=== PATIENT | male | born 1940 | race Caucasian/White ===

== ENCOUNTER 2017-11-04 13:54 | Inpatient (IN) | payer SELFPAY ==
--- NOTE | 2017-11-04 14:53 | EDPHY ---
H & P Stated Complaint: TESTICULAR PAIN AND SWELLING X 2 WEEKS - Personal History Current Tetanus Diphtheria and Acellular Pertussis (TDAP): Unsure - Medical/Surgical History Other PMH: SELF CATH - Social History Smoking Status: Never smoked Time Seen by Provider: 11/04/17 14:18 HPI/ROS: CHIEF COMPLAINT: Left testicle swelling x2 weeks HISTORY OF PRESENT ILLNESS: 77-year-old male complaining of atraumatic left testicular swelling for the past 2-3 weeks with associated pain, subjective fever at home No change in urinary habits. No dysuria no urethral discharge. Bowel movements normal. No perineal/saddle pain. No straddle injury or trauma to the genitalia. No coagulopathic disorder. No abdominal pain. Bowel movements normal. No nausea or vomiting. No history of diabetes or immunocompromise/suppressed condition. No malaise Last oral intake was 2 days ago PRIMARY CARE PROVIDER: No primary care provider. REVIEW OF SYSTEMS: A ten point review of systems was performed and is negative with the exception of the items mentioned in the HPI PAST MEDICAL & SURGICAL HISTORY: No history of diabetes, no history of immunocompromised/suppressed condition. Tetanus is out-of-date. SOCIAL HISTORY: Nonsmoker. PHYSICAL EXAM (Prior to examination, patient consented to physical exam, hands were washed and my usual and customary physical exam procedures followed) 1) GENERAL: Well-developed, well-nourished, alert and oriented. Appears nontoxic. Answering questions appropriately. 2) HEAD: Normocephalic, atraumatic 3) HEENT: Pupils equal, round, reactive to light bilaterally. Sclera anicteric. 4) NECK: Full range of motion, no meningeal signs. 5) LUNGS: Clear auscultation bilaterally, no wheezes, no rhonchi, no retractions. 6) HEART: Regular rate and rhythm, no murmur, no heave, no gallop. 7) ABDOMEN: No guarding, no rebound, no focal tenderness, negative McBurney's, negative Cortez's, negative Rovsing's, negative peritoneal sign, 8) MUSCULOSKELETAL: Moving all extremities, no focal areas of tenderness, no obvious trauma. No peripheral edema or discoloration. 9) BACK: No CVA tenderness, no midline vertebral tenderness, no fluctuance, no step-off, no obvious trauma, no visual or palpable abnormality. 10) SKIN: No rash, no petechiae. 11) : Patient's left hemiscrotum is beefy red, indurated, tender. No eschar. No crepitus. There is a large asymmetrical mass in left hemiscrotum. There is no fetid odor or drainage. The perineum is nontender. Left inguinal tenderness, adenopathy noted. No overlying skin changes to the inguinal region. DIFFERENTIAL DIAGNOSIS: In no particular order including but not limited to Delfin's gangrene, scrotal cellulitis, abscess, hernia, testicular torsion, hydrocele, varicocele (Lucita John) Constitutional: Initial Vital Signs Temperature (C) 36.5 C 11/04/17 13:58 Heart Rate 99 11/04/17 13:58 Respiratory Rate 16 11/04/17 13:58 Blood Pressure 110/72 11/04/17 13:58 O2 Sat (%) 95 11/04/17 13:58 O2 Delivery Mode Room Air Allergies/Adverse Reactions: No Known Allergies Allergy (Unverified 11/04/17 13:58) Home Medications: Medication Instructions Recorded No Medications [No Known] 11/04/12 Medical Decision Making - Diagnostics Imaging Results: Imaging Impressions Testicular Ultrasound 11/04/17 14:19 Impression: 1. Left epididymo-orchitis. 2. Large complex left hydrocele, with solid and cystic components. Does the patient have a history of an underlying coagulopathy? Findings were discussed with Tucker John PA-C at 15:37, on 11/04/2017. Abdomen CT 11/04/17 15:33 Impression: 1. Inflammatory changes of the left scrotum and inguinal canal, extending along the course of the gonadal vein. Underlying infectious process is possible. No evidence of subcutaneous air. 2. Large enhancing left hydrocele which may be superinfected. Small right hydrocele. 3. Retroperitoneal adenopathy, likely reactive. 4. Marked prostatomegaly with chronic outlet obstruction of the bladder and mild left pelviectasis. Images reviewed myself (Lucita John) ED Course/Re-evaluation: 3:30 p.m. I did examine this patient independently. His exam is consistent with a car serrated inguinal hernia. It is moderately tender. No crepitus or the eschar. We have paged surgery. (Orlando Pandey) 2:30 p.m.: Care of patient under supervision of secondary Supervising physician Dr Pandey with whom I discussed case, and who also evaluated the patient. Will update tetanus, obtain laboratory studies, ultrasound, CT 3:37 p.m.: Patient also seen examined by Dr. Pandey. Awaiting CT imaging results. Will initiate intra-abdominal dual antibiotic therapy with ceftriaxone and Flagyl for suspected incarcerated hernia. 4:[address]m. Re-evaluation. CT imaging studies showing no hernia. Positive for inflammatory changes to the left scrotum and inguinal canal extending along the gonadal vein and prostatomegaly with possible hydrocele superinfection. Skin changes overlying the left hemiscrotum concerning for possible early cellulitis.. Doubt Delfin's gangrene at this time. Patient remains in quite a bit of discomfort. Will plan on admission to hospitalist with Urology consultation. 4:29 p.m.: Consultation with Dr. Jone Hector urology who will consult. 4:49 p.m.: Consultation with Dr. Rach Avery who will admit for hospitalist (Lucita John) - Data Points Laboratory Results: Laboratory Results 11/04/17 15:02 11/04/17 15:02 11/04/17 11/04/17 11/04/17 15:35 15:02 15:02 WBC RBC Hgb Hct MCV MCH MCHC RDW Plt Count MPV Neut % (Auto) Lymph % (Auto) [place] % (Auto) Eos % (Auto) Baso % (Auto) Nucleat RBC Rel Count Absolute Neuts (auto) Absolute Lymphs (auto) Absolute Monos (auto) Absolute Eos (auto) Absolute Basos (auto) Absolute Nucleated RBC Immature Gran % Seg Neutrophils % Band Neutrophils % Lymphocytes % Monocytes % Eosinophils % Basophils % Metamyelocytes % Myelocytes % Promyelocytes % Blast Cells % Immature Gran # Absolute Seg Neuts Absolute Band Neuts Absolute Lymphocytes Absolute Monocytes Absolute Eosinophils Absolute Basophils Absolute Metamyelocyte Absolute Myelocytes Absolute Promyelocytes Absolute Plasma Cells Nucleated RBCs Absolute Blast Cells Plasma Cells % Platelet Estimate Elliptocytes PT 15.8 SEC H SEC (12.0-15.0) INR 1.24 H (0.83-1.16) APTT 31.5 SEC SEC (23.0-38.0) VBG Lactic Acid 1.2 mmol/L mmol/L (0.7-2.1) Sodium 132 mEq/L L mEq/L (135-145) Potassium 4.3 mEq/L mEq/L (3.3-5.0) Chloride 98 mEq/L mEq/L (97-110) Carbon Dioxide 27 mEq/l mEq/l (22-31) Anion Gap 7 mEq/L L mEq/L (8-16) BUN 16 mg/dL mg/dL (7-23) Creatinine 0.8 mg/dL mg/dL (0.7-1.3) Estimated GFR > 60 Glucose 101 mg/dL H mg/dL (70-100) Calcium 9.1 mg/dL mg/dL (8.5-10.4) Total Bilirubin 1.3 mg/dL mg/dL (0.1-1.4) Conjugated Bilirubin 0.5 mg/dL mg/dL (0.0-0.5) Unconjugated Bilirubin 0.8 mg/dL mg/dL (0.0-1.1) AST 34 IU/L IU/L (17-59) ALT 19 IU/L L IU/L (21-72) Alkaline Phosphatase 68 IU/L IU/L (38-126) Total Protein 7.3 g/dL g/dL (6.3-8.2) Albumin 3.4 g/dL L g/dL (3.5-5.0) Urine Color Urine Appearance Urine pH Ur Specific [place] Urine Protein Urine Ketones Urine Blood Urine Nitrate Urine Bilirubin Urine Urobilinogen Ur Leukocyte Esterase Urine RBC Urine WBC Ur Epithelial Cells Urine Bacteria Urine Mucus Urine Glucose 11/04/17 11/04/17 15:02 14:41 WBC 21.21 10^3/uL H 10^3/uL (3.80-9.50) RBC 4.48 10^6/uL 10^6/uL (4.40-6.38) Hgb 13.6 g/dL L g/dL (13.7-17.5) Hct 39.5 % L % (40.0-51.0) MCV 88.2 fL fL (81.5-99.8) MCH 30.4 pg pg (27.9-34.1) MCHC 34.4 g/dL g/dL (32.4-36.7) RDW 13.5 % % (11.5-15.2) Plt Count TNP MPV TNP Neut % (Auto) Not Reported Lymph % (Auto) Not Reported [place] % (Auto) Not Reported Eos % (Auto) Not Reported Baso % (Auto) Not Reported Nucleat RBC Rel Count Not Reported Absolute Neuts (auto) Not Reported Absolute Lymphs (auto) Not Reported Absolute Monos (auto) Not Reported Absolute Eos (auto) Not Reported Absolute Basos (auto) Not Reported Absolute Nucleated RBC Not Reported Immature Gran % Not Reported Seg Neutrophils % 94.0 % % Band Neutrophils % 0 % % Lymphocytes % 2.0 % % Monocytes % 4.0 % % Eosinophils % 0 % % Basophils % 0 % % Metamyelocytes % 0 % % Myelocytes % 0 % % Promyelocytes % 0 % % Blast Cells % 0 % % Immature Gran # Not Reported Absolute Seg Neuts 19.94 10^/uL H 10^/uL (1.70-6.50) Absolute Band Neuts 0.00 10^3/uL 10^3/uL (0.00-0.70) Absolute Lymphocytes 0.42 10^3/uL L 10^3/uL (1.00-3.00) Absolute Monocytes 0.85 10^3/uL H 10^3/uL (0.30-0.80) Absolute Eosinophils 0.00 10^3/uL L 10^3/uL (0.03-0.40) Absolute Basophils 0.00 10^3/uL L 10^3/uL (0.02-0.10) Absolute Metamyelocyte 0.00 10^3/mL 10^3/mL (0.00-0.00) Absolute Myelocytes 0.00 10^3/mL 10^3/mL (0.00-0.00) Absolute Promyelocytes 0.00 10^3/uL 10^3/uL (0.00-0.00) Absolute Plasma Cells 0.00 10^3/uL 10^3/uL (0.00-0.00) Nucleated RBCs 0 /100 WBC /100 WBC (0-0) Absolute Blast Cells 0.00 10^3/uL 10^3/uL (0.00-0.00) Plasma Cells % 0 % % Platelet Estimate TNP Elliptocytes 1+ H PT INR APTT VBG Lactic Acid Sodium Potassium Chloride Carbon Dioxide Anion Gap BUN Creatinine Estimated GFR Glucose Calcium Total Bilirubin Conjugated Bilirubin Unconjugated Bilirubin AST ALT Alkaline Phosphatase Total Protein Albumin Urine Color RK Urine Appearance MODERATELY TURBID Urine pH 5.0 (5.0-7.5) Ur Specific [place] 1.024 (1.002-1.030) Urine Protein 2+ H (NEGATIVE) Urine Ketones 2+ H (NEGATIVE) Urine Blood 2+ H (NEGATIVE) Urine Nitrate POSITIVE H (NEGATIVE) Urine Bilirubin NEGATIVE (NEGATIVE) Urine Urobilinogen 4.0 EU H EU (0.2-1.0) Ur Leukocyte Esterase 3+ H (NEGATIVE) Urine RBC 25-50 /hpf H /hpf (0-3) Urine WBC 50-182 /hpf H /hpf (0-3) Ur Epithelial Cells TRACE /lpf /lpf (NONE-1+) Urine Bacteria 4+ /hpf H /hpf (NONE SEEN) Urine Mucus 4+ /lpf H /lpf (NONE-1+) Urine Glucose NEGATIVE (NEGATIVE) Medications Given: Discontinued Medications Diphtheria/Tetanus/Acell Pertussis (Boostrix) 0.5 ml IM .ONCE ONE Stop: 11/04/17 15:22 Last Admin: 11/04/17 16:04 Dose: 0.5 ml Ceftriaxone Sodium/Dextrose (Rocephin 1 Gm (Premix)) 50 mls @ 100 mls/hr IV EDNOW ONE PRN Reason: Protocol Stop: 11/04/17 16:16 Last Admin: 11/04/17 16:03 Dose: 50 mls Metronidazole/Sodium Chloride (Flagyl 500 Mg (Premix)) 100 mls @ 100 mls/hr IV EDNOW ONE PRN Reason: Protocol Stop: 11/04/17 16:46 Last Admin: 11/04/17 16:04 Dose: 100 mls Departure - Departure Disposition: [facility] Acute Clinical Impression: Hydrocele in adult Elevated white blood cell count Qualifiers: Leukocytosis type: unspecified Qualified Code(s): D72.829 - Elevated white blood cell count, unspecified Condition: Fair
[2017-11-04] MEDS ORDERED: TDAP ADULT 0.5 ML INJ (BOOSTRIX) IM ONE (15:21)
[2017-11-04] MEDS ORDERED: IOPAMIDOL (ISOVUE-300) 100 ML BTL ONE (15:36)
[2017-11-04 16:05] LABS: INR 1.24 (0.83-1.16); PROTIME(PATIENT) 15.8 SEC (12.0-15.0)
[2017-11-04] MEDS ORDERED: ONDANSETRON 4 MG/2 ML VIAL IVP PRN (16:50)
[2017-11-04] MEDS ORDERED: ACETAMINOPHEN 325 MG TAB PO PRN (16:50)
[2017-11-04] MEDS ORDERED: ONDANSETRON DISINTEGRATING 4 MG TAB PO PRN (16:50)
[2017-11-04] MEDS ORDERED: NS 1,000 ML IV SCH (18:00)
--- NOTE | 2017-11-04 19:04 | GHP ---
[f rep st] HISTORY AND PHYSICAL DATE OF ADMISSION: 11/04/2017 CHIEF COMPLAINT: Scrotal swelling, pain. HISTORY OF PRESENT ILLNESS: 77 y/o male presenting with left testicular swelling for the past 2 weeks. He has had minimal pain, but some sweating. Denies overt fevers, nausea, vomiting, or diarrhea. He says he has an enlarged prostate, so has been self-cathing, but has been cleaning his catheters in the [place]. Denies any pus or drainage from the scrotum or his penis. REVIEW OF SYSTEMS: I completed a 10-point review of systems, negative except as in HPI. PAST MEDICAL HISTORY: Denies. PAST SURGICAL HISTORY: Appendectomy. SOCIAL HISTORY: Lives with a friend. No illicits. Occasional beer. MEDICATIONS: None. ALLERGIES: None. PHYSICAL EXAMINATION: VITAL SIGNS: Temperature 36.3, blood pressure 106/73, heart rate in the 70s, respirations 16, 96% on room air. GENERAL: Disheveled, but no acute distress. HEENT: PERRLA. Moist mucous membranes. CV: Regular rate and rhythm. LUNGS: Clear. ABDOMEN: Soft, nontender, nondistended. Positive bowel sounds. : The left scrotum is enlarged, indurated, firm, and red. There is no eschar or gangrene. Mild erythema and induration extends up the left groin. No drainage. He has left inguinal adenopathy. NEURO: 2 through 12 intact. PSYCH: Alert and oriented x3. LABORATORY DATA: WBC 21, hemoglobin 13, hematocrit 39, platelets 435. Lactate is 1.2. INR is 1.2. Sodium 132, potassium 4.3, chloride 98, carbon dioxide 27 , BUN 16, creatinine 0.8, glucose 101, calcium 9.1. Total bilirubin 1.3, AST 34 , ALT 19, albumin 3.4. Total protein 7.3. WBC 50 to 182, +3 leuks, positive nitrate. IMAGING: Testicular ultrasound: Left epididymo-orchitis. Large complex left hydrocele with solid and cystic components. Abdominal CT: Inflammatory changes of the left scrotum and inguinal canal extending along the course of the gonadal vein. No subcutaneous air. Large enhancing left hydrocele, which may be superinfected. Small right hydrocele. Retroperitoneal adenopathy. Marked prostatomegaly with chronic outlet obstruction. ASSESSMENT AND PLAN: 1. Orchitis/epididymitis: elevated white count, erythema of scrotum. No evidence of Delfin's. He is afebrile. He was evaluated by Dr. Hector in ER. Does not recommend any intervention at this time. Treat broadly with IV ceftriaxone and Flagyl. Blood/ urine cultures are pending. He had a tetanus shot in the ER. Urinalysis is grossly positive. Normal lactate. 2. Leukocytosis: Again from scrotal infection/urinary tract infection: Continue broad antibiotics. Cultures are pending. 3. Hypovolemic hyponatremia: Gently hydrate. 4. Diet: Regular. 5. Deep venous thrombosis prophylaxis: Sequential compression devices. 6. Patient warrants inpatient admission given acute infection requiring IV antibiotics and fluids. /[id number]/MODL MTDD
--- NOTE | 2017-11-04 21:04 | GCON ---
[f rep st] CONSULTATION DATE OF CONSULTATION: 11/04/2017 REFERRING PHYSICIAN: DULCE Juarez REASON FOR CONSULTATION: Left scrotal erythema and hydrocele and epididymitis. HISTORY OF PRESENT ILLNESS: The patient is a 77-year-old gentleman who for approximately the last 2 to 3 weeks has noticed increased tenderness and swelling of the left hemiscrotum. He has been having subjective fevers. Patient has a history of urinary retention, managed with intermittent catheteriz ation since 2012. He had had no recent troubles but has been cleaning catheters in the [place] . He has had no urethral discharge. His entire left side is tender. PAST MEDICAL HISTORY: Positive for urinary retention. PAST SURGICAL HISTORY: None. MEDICATIONS: Patient is on no regular medicines. SOCIAL HISTORY: He is a never smoker. REVIEW OF SYSTEMS: Negative except as above. EXAM: GENERAL: Patient is in no acute distress. GENITOURINARY: He has a normal phallus. Testes a re descended. There is induration of the left hemiscrotum. No crepitance is noted. Perineum and in guinal area are not erythematous or tender. Right hemiscrotum is normal. White count is elevated at 21,000. Ultrasound and CT scan confirmed a scrotal thickening, induration of the left epididymis, and a heterogeneous fluid collection around the left testis. Patient has si gnificantly enlarged prostate as well. There is no adenopathy. IMPRESSION: Left epididymitis with reactive hydrocele and reactive scrotal erythema. PLAN: The options are to perform exploration, drainage, probable orchiectomy versus IV antibiotics t o try to resolve the acute inflammation. Patient is not toxic at this time and has received Rocephin and Flagyl. I will re-evaluate and make further decisions on treatment. /[id number]/MODL
[2017-11-04] MEDS: metroNIDAZOLE 500 MG TAB PO SCH (21:32)
[2017-11-05] MEDS ORDERED: NS 500 ML IV ONE (04:46)
[2017-11-05] MEDS: NS 1,000 ML IV SCH ×2 (04:58→10:08)
[2017-11-05] MEDS: metroNIDAZOLE 500 MG TAB PO SCH ×3 (05:02→21:44)
--- NOTE | 2017-11-05 08:31 | SOAPPROG ---
SOAP Progress Note Assessment/Plan: Assessment: Left epididymitis with reactive hydrocele Minimal change overnight, but no progression Plan: 11/05/17 08:28 Pt will get additional antibiotics today; I suspect that he will need operative drainage/packing. Will tentatively plan for Tuesday unless condition changes today. Subjective: Pt is having no pain; he is self-cathing without problems. Objective: Vital Signs Temp Pulse Resp BP Pulse Ox 37.1 C 111 H 20 116/66 93 11/05/17 07:21 11/05/17 07:21 11/05/17 07:21 11/05/17 07:21 11/05/17 07:21 Laboratory Results 11/05/17 04:36 11/04/17 11/05/17 11/06/17 05:59 05:59 05:59 Intake Total 350 1151 Balance 350 1151 PT 15.8 SEC (12.0-15.0) H 11/04/17 15:02 INR 1.24 (0.83-1.16) H 11/04/17 15:02 Physical Exam - Physical Exam Male Genitalia: other (No significant change in scrotal enduration; no crepitation, or extrascrotal cellulitis. ) ICD10 Worksheet Patient Problems: Problems Problem Status Onset Elevated white blood cell count Acute Hydrocele in adult Acute
--- NOTE | 2017-11-05 08:34 | HOSPPROG ---
Hospitalist Progress Note Assessment/Plan: Mr Parker is a 77 y/o male who presented to the ER with left testicular swelling for the past 2 days. He cleaned his catheters in [place] (of note the [place] is not homeless, [place] a friend in [place] Today is my first encounter with the patient, chart reviewed. *Scrotal infection, Left epididymitis -Ceftriaxone and Flagyl -appreciate Dr Hector's involvement -to go to OR on Tuesday for I & D and packing *leukocytosis -due to the above *mild hyponatremia *DVT prophylaxis: early ambulation *Plan: OR tomorrow, NPO after midnight. Subjective: Damian isn't having significant pain in the left scrotum area. Objective: Vital Signs Temp Pulse Resp BP Pulse Ox 37.1 C 111 H 20 116/66 93 11/05/17 07:21 11/05/17 07:21 11/05/17 07:21 11/05/17 07:21 11/05/17 07:21 Laboratory Results 11/05/17 04:36 11/04/17 11/05/17 11/06/17 05:59 05:59 05:59 Intake Total 350 1151 Balance 350 1151 PT 15.8 SEC (12.0-15.0) H 11/04/17 15:02 INR 1.24 (0.83-1.16) H 11/04/17 15:02 - Physical Exam Constitutional: appears nourished, not in pain, unkempt Eyes: PERRL Ears, Nose, Mouth, Throat: hearing normal Cardiovascular: regular rate and rhythym Respiratory: no respiratory distress Gastrointestinal: normoactive bowel sounds Genitourinary: no bladder fullness, other (left testicle warm, firm, and very enlarged. No draingage, no eschar. Erythema extends to the left groin area.) Skin: warm Musculoskeletal: full muscle strength Neurologic: AAOx3 Psychiatric: interacting appropriately ICD10 Worksheet Patient Problems: Problems Problem Status Onset Elevated white blood cell count Acute Hydrocele in adult Acute
--- NOTE | 2017-11-05 10:12 | PDMN ---
Medical Necessity Medical necessity: MCG: MGUD Urologic Disease. 77 y/o Pt w/ testicular swelling , elevated WBC 21.21, dx w/ acute infection - epididymitis w/ reactive hydrocele. Urology consult - pending drainage and packing procedure w/ possible orchiectomy 11/06/17. Required antifungal, IV antibiotics and IV fluids. Hypotension requiring IV fluid bolus. Anemia and hyponatremia present. + UTI. Blood and urine cultures pending. Anticipate >2MN for ongoing monitoring and treatment w/ IV antibx and fluids, pending surgical intervention.
--- NOTE | 2017-11-05 10:40 | ASMTCMCOM ---
CM Note CM Note Notes: Patient admitted for scrotal swelling/pain. He is being treated with IV abx and will go to the OR tomorrow 11/06 for drainage/packing. Patient lives remotely in the [facility] but is staying with a good friend in [place]. He's eccentric but not homeless. He will need to be screened by [employer] for Medicaid on Tuesday. Case Management will follow for discharge planning. Date Signed: 11/05/2017 10:39 AM Electronically Signed By:Valarie Saucedo RN
[2017-11-05] MEDS ORDERED: NS 1,000 ML IV SCH (23:00)
[2017-11-06 04:48] LABS: PLATELET COUNT 378 10^3/uL (150-400)
[2017-11-06] MEDS: metroNIDAZOLE 500 MG TAB PO SCH ×3 (05:38→21:36)
[2017-11-06] MEDS ORDERED: LR 1,000 ML IV ONE (07:50)
--- NOTE | 2017-11-06 07:58 | PDANEPAE ---
ANE History of Present Illness scrotal abscess ANE Past Medical History - Cardiovascular History Hx Hypertension: No Hx Arrhythmias: No Hx Chest Pain: No Hx Coronary Artery / Peripheral Vascular Disease: No Hx CHF / Valvular Disease: No Hx Palpitations: No - Pulmonary History Hx COPD: No Hx Asthma/Reactive Airway Disease: No Hx Recent Upper Respiratory Infection: No Hx Oxygen in Use at Home: No Hx Sleep Apnea: No Sleep Apnea Screening Result - Last Documented: Negative - Endocrine History Hx Diabetes: No - Chronic Pain History Chronic Pain: No ANE Review of Systems Review of systems is: negative Review of Systems: - Exercise capacity Exercise capacity: >=4 METS ANE Patient History - Allergies Allergies/Adverse Reactions: No Known Allergies Allergy (Unverified 11/04/17 13:58) - Home Medications Home medications: home medication list seen and reviewed Home Medications: NK [No Known Home Meds] 11/04/17 [Last Taken Unknown] - NPO status NPO Since - Liquids (Date): 11/06/17 NPO Since - Liquids (Time): 00:05 NPO Since - Solids (Date): 11/05/17 NPO Since - Solids (Time): 16:00 - Anes Hx Anes Hx: no prior problems - Smoking Hx Smoking Status: Never smoked ANE Labs/Vital Signs - Labs Result Diagrams: 11/06/17 04:33 11/06/17 04:33 - Vital Signs Blood Pressure: 114/79 Heart Rate: 109 Respiratory Rate: 16 O2 Sat (%): 90 Height: 177.8 cm Weight: 79.379 kg ANE Physical Exam - Airway Neck exam: FROM Mallampati Score: Class 2 Mouth exam: chaudhry - Pulmonary Pulmonary: no respiratory distress - Cardiovascular Cardiovascular: regular rate and rhythym - ASA Status ASA Status: II, E ANE Anesthesia Plan Anesthesia Plan: general endotracheal anesthesia
[2017-11-06] MEDS ORDERED: fentaNYL 100 MCG/2 ML INJ ONE ×2 (08:05)
[2017-11-06] MEDS ORDERED: PROPOFOL 200 MG/20 ML VIAL ONE (08:05)
[2017-11-06] MEDS ORDERED: ONDANSETRON 4 MG/2 ML VIAL ONE (08:06)
[2017-11-06] MEDS ORDERED: KETOROLAC 30 MG/1 ML SDV ONE (08:06)
[2017-11-06] MEDS ORDERED: DEXAMETHASONE 4 MG/ML VIAL ONE (08:06)
[2017-11-06] MEDS ORDERED: LIDOCAINE 2% 5 ML SDV ONE (08:06)
[2017-11-06] MEDS ORDERED: PHENYLEPHRINE HCL 100 MCG/ML SYR ONE (08:18)
[2017-11-06] MEDS ORDERED: HYDROmorphONE/DILAUDID 1 MG/ML INJ IVP PRN (08:28)
[2017-11-06] MEDS ORDERED: METOCLOPRAMIDE 10 MG/2 ML VIAL IVP PRN (08:28)
[2017-11-06] MEDS ORDERED: LR 500 ML IV PRN (08:28)
[2017-11-06] MEDS ORDERED: ONDANSETRON 4 MG/2 ML VIAL IVP PRN (08:28)
[2017-11-06] MEDS ORDERED: LABETALOL HCL 5 MG/ML 20 ML MDV IVP PRN (08:28)
[2017-11-06] MEDS ORDERED: HYDROCODONE/APAP 5/325 TAB PO PRN (08:28)
[2017-11-06] MEDS ORDERED: ACETAMINOPHEN 500 MG TAB PO PRN (08:28)
[2017-11-06] MEDS ORDERED: NALOXONE HCL 0.4 MG/ML INJ IVP PRN (08:28)
[2017-11-06] MEDS ORDERED: oxyCODONE IR 5 MG TAB PO PRN (08:28)
[2017-11-06] MEDS ORDERED: fentaNYL 100 MCG/2 ML INJ IVP PRN (08:28)
[2017-11-06] MEDS ORDERED: ALBUTEROL 3 ML DEYVIAL IH PRN (08:28)
[2017-11-06] MEDS ORDERED: PROMETHAZINE HCL 25 MG/ML INJ IVP PRN (08:28)
--- NOTE | 2017-11-06 08:28 | POSTANESTH ---
Post Anesthetic Evaluation Cardiovascular Status: Normal, Stable Respiratory Status: Normal, Stable Level of Consciousness/Mental Status: Can Participate in Eval, Alert and Oriented Pain Control: Adequate, Prn Tx Ordered Nausea/Vomiting Control: Adequate, Prn Tx Ordered Complications Possibly Related to Anesthesia: None Noted
[2017-11-06] MEDS ORDERED: BUPIVACAINE 0.25% 30 ML SDV ONE (08:31)
--- NOTE | 2017-11-06 08:46 | POSTOPPROG ---
Post Op Note Date of Operation: 11/06/17 Surgeon: Jone Hector Loading Unit Operator Seating: none Anesthesia: GET(General Endotracheal) Pre-op Diagnosis: infected left hydrocele Post-op Diagnosis: same Procedure: Incision and drainage of left hemiscrotum Inf/Abcess present in the surg proc area at time of surgery?: Yes Depth: Superfical (Skin SQ) EBL: 50-100
--- NOTE | 2017-11-06 10:09 | GOP ---
[f rep st] OPERATIVE REPORT DATE OF OPERATION: 11/06/2017 SURGEON: Jone Hector MD PREOPERATIVE DIAGNOSIS: Infected left hydrocele. POSTOPERATIVE DIAGNOSIS: Infected left hydrocele. PROCEDURE PERFORMED: Incision and drainage of left hemiscrotum. FINDINGS: SPECIMENS: Left infected hydrocele for culture. ESTIMATED BLOOD LOSS: Minimal. INDICATIONS: Patient is a 77-year-old male who was admitted with acute scrotal hyperemia and fullnes s. CT scan was consistent with left epididymal orchitis; a mixed density fluid collection was around the testis. Urine culture grew Citrobacter. Patient was given 2 days of antibiotics, but showed mi nimal improvement. Options were discussed. He elected to come in for incision and drainage of presu med left infected hydrocele. DESCRIPTION OF PROCEDURE: After informed consent and under general endotracheal anesthesia, the mary ann ent was placed in the lithotomy position with his genitalia sterilely prepped and draped. A total of 20 cc of 0.25% Marcaine were injected at the scrotal skin and as a cord block. A transverse incision was made and carried into the scrotal sac. A moderate amount of purulent mater ial was drained. Cultures were obtained. The solid debris was also bluntly removed. The testis carlos eared viable. The wound was irrigated copiously with saline. Saline soaked Kerlix was used to pack the wound and an ABD pad and mesh panties were used as a dressing. A Woo catheter was placed at th e end of the procedure. The patient was awakened, transferred to the recovery room in stable condition. COMPLICATIONS: There were no intraoperative complications. /[id number]/MODL
--- NOTE | 2017-11-06 12:03 | HOSPPROG ---
Hospitalist Progress Note Assessment/Plan: Assessment: 77-year-old male presenting with epididymitis, infected hydrocele secondary to chronic straight catheterization for suspected BPH, with poor sanitation Plan: 1. Epididymitis, infected hydrocele. Acute, Citrobacter growing in urine culture, moderate amount of pustular material excised on incision and drainage by Dr. Jone Hector, 11/06/2017, sent for culture -continue monitor white blood cell count, currently downtrending -secondary to trauma after patient utilizing [place] water to clean his straight catheter, and then inserting -discussed with Dr. Ainsley Souza, appreciate consultation to help guide duration and choice of antibiotic therapy -continue on IV ceftriaxone and Flagyl -pain management currently adequate -Dr. Hector will reassess wound area tomorrow and guide treatment moving forward -appreciate wound care consultation and guidance regarding keeping the area clean, receiving wound care as an outpatient -counseled the patient and his friend and extensively regarding the plan above 2. Suspected BPH. Likely cause of the patient's straight catheterizations which she has been performing for years -patient believes that he can control his BPH with intermittent fasting and other dietary choices -encourage the patient to consider utilizing adjuvant Flomax or finasteride -continue to keep indwelling Woo catheter 3. Acute hyponatremia. Secondary to hypoperfusion in setting of infection, received IV normal saline, hold further IV fluids Diet. Regular Prophylaxis. Moderate risk, SCDs, initiate pharmacologic when deemed safe by Urology Code. Full Disposition. Anticipated discharge uncertain, pending surgical wound management as above, discussed with case management, will investigate patient's nursing and therapy needs to be on this episode of care. Subjective: Pain very minimal, scrotal area is damp Objective: Vital Signs Temp Pulse Resp BP Pulse Ox 36.5 C 74 14 114/79 90 L 11/06/17 11:31 11/06/17 11:31 11/06/17 11:31 11/06/17 11:31 11/06/17 11:31 Laboratory Results 11/06/17 04:33 11/06/17 04:33 11/05/17 11/06/17 11/07/17 05:59 05:59 05:59 Intake Total 350 5619 350 Output Total 800 10 Balance 350 4819 340 PT 15.8 SEC (12.0-15.0) H 11/04/17 15:02 INR 1.24 (0.83-1.16) H 11/04/17 15:02 - Time Spent With Patient Time Spent with Patient: greater than 35 minutes Time Spent with Patient: Greater than 35 minutes spent on this patients care, greater than 50% of time spent counseling, educating, and coordinating care regarding the above mentioned plan. - Physical Exam Constitutional: no apparent distress, not in pain, unkempt, No uncomfortable Cardiovascular: regular rate and rhythym, no murmur, rub, or gallop, No irregularly irregular, No edema Respiratory: no respiratory distress, no rales or rhonchi, clear to auscultation Gastrointestinal: normoactive bowel sounds, soft, non-tender abdomen, no palpable masses Genitourinary: other (Firm scrotum, minimally tender, not fluctuant but slightly indurated, bandaged in the inferior aspect with mild serosanguineous drainage, penis appears normal with Woo catheter in place) Neurologic: AAOx3 Psychiatric: not anxious, not encephalopathic, other (eccentric, redirectible), No agitated ICD10 Worksheet Patient Problems: Problems Problem Status Onset Hydrocele in adult Acute Elevated white blood cell count Acute
--- NOTE | 2017-11-06 13:05 | GCON ---
[f rep st] CONSULTATION INFECTIOUS DISEASE CONSULTATION DATE OF CONSULTATION: 11/06/2017 REFERRING PHYSICIAN: Lawrence Marte MD REASON FOR CONSULTATION: Scrotal cellulitis and infected hydrocele. HISTORY OF PRESENT ILLNESS: A 77-year-old male with a history of urinary retention, thought secondary to BPH, who was self-catheterizing for the last 5 years, who 3 weeks ago was hiking, washed his self-catheter in stream water, and subsequently a week later developed progressive testicular swelling. The patient eventually presented to care on November 04 through the prompting of his daughter and friend. On admission, the patient was found to have testicular swelling with erythema, left greater than right, a marked leukocytosis of 21,000 , and pyuria, with imaging showing a large hydrocele on the left, 8 x 7 x 5 cm, with associated hyperemia of the testis and epididymal head. In addition, a CT was performed, which confirmed inflammatory changes of the scrotum and inguinal canal with a large enhancing left hydrocele suggestive of superinfection. Also , marked prostatomegaly with chronic outlet obstruction. The patient was admitted to the hospital, and started on IV ceftriaxone and metronidazole. Urology was consulted, and today patient went to the OR for I and D of the left hemiscrotum, which was left open and packed. Cultures were taken and pending. Urine culture demonstrated 100,000 Citrobacter susceptible to ceftriaxone. ID is asked to consult for ongoing antibiotic management. PAST MEDICAL HISTORY: Possible enlarged prostate, self-catheterizing x5 years. PAST SURGICAL HISTORY: He had an appendectomy. SOCIAL HISTORY: He lives with a friend. He immigrated to the [place] from [place] in the 1960s. 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 He has a daughter who is present in the room. No recent travel. MEDICATIONS AT HOME: None. CURRENT MEDICATIONS: Ceftriaxone 1 g IV daily, Flomax 0.5 mg at bedtime, Zofran as needed, Flagyl 500 mg p.o. q.8 h., and Tylenol. ALLERGIES: NKDA. REVIEW OF SYSTEMS: A complete 10-point review of systems was performed and was negative except as mentioned in the HPI. PHYSICAL EXAM: VITAL SIGNS: T-max is 37.9, temperature currently is 36.5, blood pressure 114/76, heart rate 74, respiratory rate 14, and saturation 90% to 93% on room air. GENERAL: This is a tanned male lying in bed with long hair. He is breathing easy. HEENT: He has reactive pupils bilaterally. He is edentulous. He has moist mucous membranes. NECK: Supple. CARDIOVASCULAR: Regular rate. No murmurs. CHEST: Clear to auscultation bilaterally. ABDOMEN: Soft and nontender. : Woo is in place. The patient has scrotal edema that is woody in nature, left side greater than right, with gustavo erythema , and significant drainage coming from the left side, which is packed with gauze from the OR. He has some tenderness to palpation, particularly on the left. No crepitus. NEUROLOGICAL: He has fluent speech. He is alert and oriented x4, moving all 4 extremities equally. SKIN: No rash. LABORATORY: White count today is 13,000 and was 21,000 to begin with, hematocrit 35, platelets 378, and 75% neutrophils. Creatinine is 0.6. AST 34, ALT 19, and albumin 3.4. Blood cultures of November 04, 2017, one of 2 growing gram- positive anabel, ID pending. Cultures from the OR today, 11/06/2017, Gram stain and culture are pending. ASSESSMENT AND PLAN: This is a 77-year-old male with BPH, who has self- catheterized x5 years, who developed a significant complication related to poor technique related to in-and-out catheters, with scrotal cellulitis and a likely infected left hydrocele, status post incision and drainage. Scrotal cellulitis has a propensity to be more polymicrobial in nature as source of bacterial can be related to GI tract, urine culture demonstrates Citrobacter susceptible to ceftriaxone. Whether gram-positive anabel in blood cultures is significant is not clear at this point. The patient has clinically improved. Therefore, I would not adjust antibiotics at this point. 1. Continue ceftriaxone and metronidazole. Reasonable to continue anaerobic coverage until OR cultures more mature. 2. Follow up on identification of gram-positive anabel and blood cultures. 3. Would follow up on cultures from the operating room. 4. Duration of antibiotic therapy: Currently to remain on intravenous antibiotics due to severity of infection, may need up to 2 weeks. We will await additional information for final duration and modality of therapy. Thank you for this consultation. We will continue to see him on a daily basis. Time 80 min >50% time spent with education and counseling regarding diagnosis and planned treatment and expected recovery course.Reviewed course of treatment with the patient, his sister, and friend, and care was coordinated with Dr. Marte. /[id number]/MODL [email or web address]
[2017-11-06] MEDS: TAMSULOSIN HCL 0.4 MG CAP PO SCH (21:37)
[2017-11-07] MEDS: metroNIDAZOLE 500 MG TAB PO SCH ×3 (05:49→21:11)
--- NOTE | 2017-11-07 11:49 | ASMTCMCOM ---
CM Note CM Note Notes: CM spoke to michael Pantoja [employer] regarding d/c POC. Pt does not qualify for Medicaid at this time. Needs are TBD at this time. CM to follow. Plan: TBD Date Signed: 11/07/2017 11:48 AM Electronically Signed By:KEVIN Lee
--- NOTE | 2017-11-07 17:14 | PCMIDPN ---
Assessment/Plan: Assessment: Infected hydrocele left scrotum-possibly inoculated by poor technique from intermittent catheterization. Citrobacter in his urine is covered with ceftriaxone. Metronidazole added for anaerobe coverage given stories of environmental exposure to cistern and stream water for catheterization. Possible oral regimen of Levaquin and Flagyl for discharge once ready. Plan: 1. Continue both ceftriaxone and metronidazole as dosed. 2. Follow surgical evaluation of operative wound. 11/07/17 17:11 Subjective: Patient is resting in his hospital bed. He is very talkative and somewhat tangential with speech. His friend who lives in [place] who he occasionally lives with is in the room as well. He denies any new complaint. Objective: Ceftriaxone # 3 Metronidazole # 3 Vital Signs Temp Pulse Resp BP Pulse Ox 36.5 C 69 16 118/79 93 11/07/17 16:00 11/07/17 16:00 11/07/17 16:00 11/07/17 16:00 11/07/17 16:00 Microbiology 11/06/17 08:23 Gram Stain - Final Groin - Anaerobic Tube/Swab Laboratory Results 11/07/17 04:40 11/06/17 04:33 11/06/17 11/07/17 11/08/17 05:59 05:59 05:59 Intake Total 5619 900 Output Total 800 1110 Balance 4819 -210 - Physical Exam General Appearance: WD/WN, alert, no apparent distress, non-toxic Respiratory: lungs clear, normal breath sounds, No respiratory distress Cardiac/Chest: regular rate, rhythm, No tachycardia Skin: normal color, warm/dry, No rash Neuro/Psych: alert, normal mood/affect, oriented x 3 ICD10 Worksheet Patient Problems: Problems Problem Status Onset Elevated white blood cell count Acute Hydrocele in adult Acute
--- NOTE | 2017-11-07 17:29 | HOSPPROG ---
Hospitalist Progress Note Assessment/Plan: Assessment: 77-year-old male presenting with epididymitis, infected hydrocele secondary to chronic straight catheterization for suspected BPH, with poor sanitation Plan: 1. Epididymitis, infected hydrocele. POA, Citrobacter growing in urine culture and GPR on BCx, moderate amount of pustular material excised on incision and drainage 11/06/2017 -continue monitor white blood cell count, currently downtrending -secondary to trauma after patient utilizing [place] water to clean his straight catheter, and then inserting -per ID, continue on IV ceftriaxone and Flagyl -cont local wound care, keep dry -anticipate 2 weeks IV Abx -case mgmt currently working on Medicaid carlos w/ financial counseling to enable Abx outside of hospital -appreciate ongoing eval by Dr. Hector 2. Suspected BPH. Likely cause of the patient's straight catheterizations which he has been performing for years -patient believes that he can control his BPH with intermittent fasting and other dietary choices -encourage the patient to consider utilizing adjuvant Flomax, started -continue to keep indwelling Blood catheter 3. Acute hyponatremia. Secondary to hypoperfusion in setting of infection, received IV normal saline, hold further IV fluids 4. Eccentricity. Unclear whether patient has a schizotypal personality disorder , very tangential speech, but not overtly encephalopathic -cont to encourage self-care Diet. Regular Prophylaxis. Moderate risk, lovenox 40 Code. Full Disposition. Anticipated discharge uncertain, pending surgical wound management as above, discussed with case management, will investigate patient's nursing and therapy needs. Subjective: patient reports frustration w/ the current value of currency and inflation which he deems to be 2/2 irresponsible printing of paper money; reports pain in scrotum minimal, ongoing drainage Objective: Vital Signs Temp Pulse Resp BP Pulse Ox 36.5 C 69 16 118/79 93 11/07/17 16:00 11/07/17 16:00 11/07/17 16:00 11/07/17 16:00 11/07/17 16:00 Microbiology 11/06/17 08:23 Gram Stain - Final Groin - Anaerobic Tube/Swab Laboratory Results 11/07/17 04:40 11/06/17 04:33 11/06/17 11/07/17 11/08/17 05:59 05:59 05:59 Intake Total 5619 900 Output Total 800 1110 Balance 4819 -210 PT 15.8 SEC (12.0-15.0) H 11/04/17 15:02 INR 1.24 (0.83-1.16) H 11/04/17 15:02 - Physical Exam Constitutional: no apparent distress, not in pain, unkempt, No uncomfortable Cardiovascular: regular rate and rhythym, no murmur, rub, or gallop, No edema Respiratory: no respiratory distress, no rales or rhonchi, clear to auscultation Gastrointestinal: normoactive bowel sounds, soft, non-tender abdomen, no palpable masses, No distension Genitourinary: other (firm scrotum w/o tenderness, packing in place, normal penis w/o lesion, blood in urethra) Skin: other (induration but no erythema anterior scrotum) Neurologic: AAOx3 Psychiatric: not anxious, not encephalopathic, thought process linear, other ( tangential but directible) ICD10 Worksheet Patient Problems: Problems Problem Status Onset Hydrocele in adult Acute Elevated white blood cell count Acute
[2017-11-07] MEDS: TAMSULOSIN HCL 0.4 MG CAP PO SCH (21:11)
[2017-11-08] MEDS: metroNIDAZOLE 500 MG TAB PO SCH (06:08)
--- NOTE | 2017-11-08 07:30 | SOAPPROG ---
SOAP Progress Note Assessment/Plan: Assessment: Left epididymitis with reactive hydrocele Minimal change overnight, but no progression Plan: 11/05/17 08:28 Pt will get additional antibiotics today; I suspect that he will need operative drainage/packing. Will tentatively plan for Tuesday unless condition changes today. 11/08/17 07:28 Pt is progressing; his wound is starting to granulate. Will continue to have dressing changes; pt should be able to continue after discharge. Subjective: Pt wants to take a shower. He has no new complaints. Objective: Vital Signs Temp Pulse Resp BP Pulse Ox 36.6 C 68 16 121/83 H 93 11/07/17 22:28 11/07/17 22:28 11/07/17 22:28 11/07/17 22:28 11/07/17 22:28 Microbiology 11/06/17 08:23 Gram Stain - Final Groin - Anaerobic Tube/Swab Laboratory Results 11/08/17 04:50 11/06/17 04:33 11/07/17 11/08/17 11/09/17 05:59 05:59 05:59 Intake Total 900 1200 Output Total 1110 1400 Balance -210 -200 PT 15.8 SEC (12.0-15.0) H 11/04/17 15:02 INR 1.24 (0.83-1.16) H 11/04/17 15:02 Physical Exam - Physical Exam Male Genitalia: other (Good granulation tissue is forming; size of space is markedly reduced.) ICD10 Worksheet Patient Problems: Problems Problem Status Onset Elevated white blood cell count Acute Hydrocele in adult Acute
--- NOTE | 2017-11-08 09:37 | PCMIDPN ---
Assessment/Plan: # Scrotal cellulitis and infected L hydrocele: still very indurated but improved , still w moderate tenderness, purplish gustavo appearance. Ucx with Citrobacter. No anaerobes isolated from I&D yet. WBC normal for first time today --dc metronidazole, may be causing LOCKETT, no anaerobes isolated --continue ceftriaxone --improved but still needs close monitoring # Positive blood cx 1/2 sets: likely contaminant micro 11/04 blood cx 1/2 Dermobacter hominis 11/04 UCx 100K Citrobacter meds ceftriaxone 1gm IV daily #5 Flagyl Subjective: c/o LOCKETT, feels like it is due to antibiotics Objective: Vital Signs Temp Pulse Resp BP Pulse Ox 36.6 C 69 16 117/84 H 91 L 11/08/17 08:00 11/08/17 08:00 11/08/17 08:00 11/08/17 08:00 11/08/17 08:00 Microbiology 11/06/17 08:23 Gram Stain - Final Groin - Anaerobic Tube/Swab Laboratory Results 11/08/17 04:50 11/06/17 04:33 11/07/17 11/08/17 11/09/17 05:59 05:59 05:59 Intake Total 900 1200 Output Total 1110 1400 Balance -210 -200 - Physical Exam General Appearance: alert, no apparent distress EENT: other (no teeth; MMM) Respiratory: No accessory muscle use Extremities: No pedal edema Male Genitalia: erythema (gustavo diffuse scrotal edema), scrotal edema (woody), other (packing in place L hemiscrotum, dry currently) Skin: pallor, other (tanned), No rash Neuro/Psych: alert, normal mood/affect, oriented x 3, other (very tangential) - Time Spent With Patient Time Spent with Patient: greater than 25 minutes Time Spent with Patient: Greater than 25 minutes spent on this patients care, greater than 50% of time spent counseling, educating, and coordinating care regarding the above mentioned plan. ICD10 Worksheet Patient Problems: Problems Problem Status Onset Elevated white blood cell count Acute Hydrocele in adult Acute
[2017-11-08] MEDS: ENOXAPARIN 40 MG/0.4 ML SYR SC SCH (09:54)
--- NOTE | 2017-11-08 12:27 | HOSPPROG ---
Hospitalist Progress Note Assessment/Plan: Mr Parker is a 77 y/o male who presented to the ER with left testicular swelling for the past 2 days. He cleaned his catheters in [place] (of note the patient is not homeless, [place] frequently[place] staying w a friend in [place]. *Scrotal infection and infected Left hydrocele -Ceftriaxone, Flagyl dc (patient feeling poorly, has headaches) -s/p I & D *leukocytosis -resolved *Positive blood cx 1/2 sets: likely a contaminant *mild hyponatremia -resolved *BPH -blood in place -likely why he needs catheters *DVT prophylaxis: LMWH Subjective: Damian is not hungry, has a headache (doesn't want any treatment for his headache) Objective: Vital Signs Temp Pulse Resp BP Pulse Ox 36.6 C 69 16 117/84 H 91 L 11/08/17 08:00 11/08/17 08:00 11/08/17 08:00 11/08/17 08:00 11/08/17 08:00 Microbiology 11/06/17 08:23 Gram Stain - Final Groin - Anaerobic Tube/Swab Laboratory Results 11/08/17 04:50 11/06/17 04:33 11/07/17 11/08/17 11/09/17 05:59 05:59 05:59 Intake Total 900 1200 Output Total 1110 1400 1050 Balance -210 -200 -1050 PT 15.8 SEC (12.0-15.0) H 11/04/17 15:02 INR 1.24 (0.83-1.16) H 11/04/17 15:02 - Physical Exam Constitutional: uncomfortable, No not in pain Eyes: PERRL Ears, Nose, Mouth, Throat: hearing normal Cardiovascular: regular rate and rhythym Respiratory: no respiratory distress Skin: warm, other (left testicle with much less redness and swelling last time I cared for him, has packing in place) Musculoskeletal: full muscle strength Neurologic: AAOx3 Psychiatric: interacting appropriately ICD10 Worksheet Patient Problems: Problems Problem Status Onset Elevated white blood cell count Acute Hydrocele in adult Acute
[2017-11-08] MEDS: TAMSULOSIN HCL 0.4 MG CAP PO SCH (21:35)
[2017-11-09] MEDS: ENOXAPARIN 40 MG/0.4 ML SYR SC SCH (08:37)
--- NOTE | 2017-11-09 15:24 | PCMIDPN ---
Assessment/Plan: # Scrotal cellulitis and infected L hydrocele likely related to self-cath: Continued improvement in induration, left scrotal area much more mobile today, less tenderness --continue ceftriaxone --hopeful for discharge on p. O. Antibiotics in the next day or 2 # Positive blood cx 1/2 sets: likely contaminant micro 11/04 blood cx 1/2 Dermobacter hominis 11/04 UCx 100K Citrobacter meds ceftriaxone 1gm IV daily #6 Subjective: Patient is pleased with his improvement. No diarrhea, or other reaction to antibiotics noted. Objective: Vital Signs Temp Pulse Resp BP Pulse Ox 36.5 C 93 18 114/79 94 11/09/17 08:00 11/09/17 08:00 11/09/17 08:00 11/09/17 08:00 11/09/17 08:00 Microbiology 11/06/17 08:23 Gram Stain - Final Groin - Anaerobic Tube/Swab Laboratory Results 11/08/17 04:50 11/06/17 04:33 11/08/17 11/09/17 11/10/17 05:59 05:59 05:59 Intake Total 1200 3740 Output Total 1400 3900 Balance -200 -160 - Physical Exam General Appearance: alert, no apparent distress EENT: other (Edentulous) Respiratory: No accessory muscle use Cardiac/Chest: regular rate, rhythm Extremities: No pedal edema Male Genitalia: blood, other (Left hemiscrotum is firm and gustavo in appearance with increased mobility as compared to yesterday, packing still in place with significantly less discharge.) Skin: No pallor, No rash Neuro/Psych: alert, normal mood/affect - Time Spent With Patient Time Spent with Patient: greater than 25 minutes (Care coordinated with Dr. Harish Marte. Reviewed culture and surgical results with patient and his friend) Time Spent with Patient: Greater than 25 minutes spent on this patients care, greater than 50% of time spent counseling, educating, and coordinating care regarding the above mentioned plan. ICD10 Worksheet Patient Problems: Problems Problem Status Onset Elevated white blood cell count Acute Hydrocele in adult Acute
--- NOTE | 2017-11-09 15:56 | ASMTCMCOM ---
CM Note CM Note Notes: Per ID, patient making progress and will be able to transition to oral antibiotics in the next 1-2 days. I noticed that he did not qualify for Medicaid, so I called our financial counseling department to see if they could follow up with him. He will likely need to apply for some sort of assistance for this visit and will likely not qualify for any outpatient services. Fortunately, he has a very supportive friend who helps him out. Case Management will follow. Date Signed: 11/09/2017 03:55 PM Electronically Signed By:Valarie Saucedo RN
--- NOTE | 2017-11-09 16:06 | ASMTCMCOM ---
CM Note CM Note Notes: I have further clarified patient's insurance (lack of insurance) status. He is a permanent resident, thus he does not qualify for MEDICARE. He may qualify for Medicaid, however. His friend Carol says that his daughter applied for Medicaid for him in [facility]. Our Medicaid specialists will reach out to [facility] tomorrow to find out the status. Date Signed: 11/09/2017 04:06 PM Electronically Signed By:Valarie Saucedo RN
--- NOTE | 2017-11-09 16:50 | HOSPPROG ---
Hospitalist Progress Note Assessment/Plan: Assessment: 77-year-old male presenting with epididymitis, infected hydrocele secondary to chronic straight catheterization for suspected BPH, with poor sanitation Plan: 1. Epididymitis, infected hydrocele. POA, Citrobacter growing in urine culture and GPR on BCx, moderate amount of pustular material excised on incision and drainage 11/06/2017 -secondary to trauma after patient utilizing [place] water to clean his straight catheter, and then inserting -d/w Dr. Souza, recommends continue on IV ceftriaxone today and likely adjust to PO Abx for a total 2 week Abx course tomorrow -cont local wound care, keep dry -d/w Dr. Hector, agrees w/ blood removal tomorrow AM and allow patient to straight cath 2. Suspected BPH. Likely reason for the patient's straight catheterizations which he has been performing for years -patient believes that he can control his BPH with intermittent fasting and other dietary choices -encourage the patient to consider utilizing adjuvant Flomax, started -continue to keep indwelling Blood catheter today, remove in AM 3. Acute hyponatremia. Secondary to hypoperfusion in setting of infection, received IV normal saline, hold further IV fluids 4. Eccentricity. Unclear whether patient has a schizotypal personality disorder , very tangential speech, but not overtly encephalopathic -cont to encourage self-care Diet. Regular Prophylaxis. Moderate risk, lovenox 40 Code. Full Disposition. Anticipated discharge 11/10 pending wound appearance Subjective: patient w/o pain in scrotum Objective: Vital Signs Temp Pulse Resp BP Pulse Ox 36.1 C 81 16 102/65 92 11/09/17 16:00 11/09/17 16:00 11/09/17 16:00 11/09/17 16:00 11/09/17 16:00 Microbiology 11/06/17 08:23 Gram Stain - Final Groin - Anaerobic Tube/Swab Laboratory Results 11/08/17 04:50 11/06/17 04:33 11/08/17 11/09/17 11/10/17 05:59 05:59 05:59 Intake Total 1200 3740 Output Total 1400 3900 1200 Balance -200 -160 -1200 PT 15.8 SEC (12.0-15.0) H 11/04/17 15:02 INR 1.24 (0.83-1.16) H 11/04/17 15:02 - Pending Discharge Pending Discharge Within 24 Hours: Yes Pending Discharge Date: 11/10/17 Pending Discharge Time: 11:00 - Physical Exam Constitutional: no apparent distress, not in pain, unkempt, No uncomfortable Cardiovascular: regular rate and rhythym, no murmur, rub, or gallop, No edema Respiratory: no respiratory distress, no rales or rhonchi, clear to auscultation Gastrointestinal: normoactive bowel sounds, soft, non-tender abdomen, no palpable masses Genitourinary: blood in urethra, other (firm but non-tender L scrotum w/o erythema, packing in place, no fluctuance, R testicle freely palpated w/o tenderness) Neurologic: AAOx3 Psychiatric: not anxious, not encephalopathic, other (tangential but redirectible), No agitated ICD10 Worksheet Patient Problems: Problems Problem Status Onset Hydrocele in adult Acute Elevated white blood cell count Acute
[2017-11-09] MEDS: TAMSULOSIN HCL 0.4 MG CAP PO SCH (20:05)
[2017-11-10] MEDS: ENOXAPARIN 40 MG/0.4 ML SYR SC SCH (08:43)
[2017-11-10 08:58] VITALS: BP 119/83
--- NOTE | 2017-11-10 14:31 | ASMTCMCOM ---
CM Note CM Note Notes: Pt cleared by PT for home, anticipate he will stay with his friend in [place] when medically stable. CM available for any changes. DC Plan: Independent Date Signed: 11/10/2017 02:30 PM Electronically Signed By:Nelly Magaña RN
--- NOTE | 2017-11-10 14:49 | PCMIDPN ---
Assessment/Plan: # Scrotal cellulitis and infected L hydrocele likely related to self-cath: Continued improvement in induration, left scrotal area much more mobile today, less tenderness --levofloxacin 750 mg daily x1 week --recommended self cathing 3 to 4 times a day with sterilized catheter --Follow-up dressing changed and follow clinic appt with me entered in discharge tab # Positive blood cx 1/2 sets: likely contaminant micro 11/04 blood cx 1/2 Dermobacter hominis 11/04 UCx 100K Citrobacter meds ceftriaxone 1gm IV daily #7 Subjective: Patient is feeling well no acute distress, mild pain with change of packing. Objective: Vital Signs Temp Pulse Resp BP Pulse Ox 36.6 C 75 16 119/83 H 91 L 11/10/17 08:00 11/10/17 08:00 11/10/17 08:00 11/10/17 08:00 11/10/17 08:00 Microbiology 11/06/17 08:23 Gram Stain - Final Groin - Anaerobic Tube/Swab Laboratory Results 11/08/17 04:50 11/06/17 04:33 11/09/17 11/10/17 11/11/17 05:59 05:59 05:59 Intake Total 3740 400 Output Total 3900 2300 Balance -160 -1900 GENERAL: NONTOXIC. SCROTUM: [id number] INDURATION PERSISTS LEFT HEMISCROTUM, PACKING REMOVED BY ME, BASE OF WOUND WITHOUT PURULENT MATERIAL, ONLY SEROSANGUINEOUS FLUID. NO FLUCTUANCE WAS DETECTED. MINIMAL WARMTH. SKYLER APPEARANCE - Time Spent With Patient Time Spent with Patient: greater than 35 minutes (REVIEWING ANTIBIOTIC RECOMMENDATIONS, AND TRAINING ON PACKING LEFT HEMISCROTUM) Time Spent with Patient: Greater than 35 minutes spent on this patients care, greater than 50% of time spent counseling, educating, and coordinating care regarding the above mentioned plan. ICD10 Worksheet Patient Problems: Problems Problem Status Onset Elevated white blood cell count Acute Hydrocele in adult Acute
--- NOTE | 2017-11-10 22:35 | PDDCSUM ---
Discharge Summary Discharge Summary: Date of Admission: 11/04/17 Date of Discharge: 11/10/17 Discharge Diagnoses: 1. Scrotal cellulitis and infected hydrocele, POA 2. 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 Hector Consultation: Urology (Dr. Hector) and ID Chief Complain: Scrotal pain Subjective: Scrotum no longer painful Physical Exam: SBP 110, HR 80, satting well on RA, AFeb o/n, AAOx3, pain 0/10 Hospital Course: Damian presented w/ scrotal pain 2/2 the development of cellulitis and infected hydrocele s/p straight-cathing w/ contaminated [place] water. He regularly uses a straight cath due to his BPH, and this time, he had cleaned the cath in [place] water and subsequently used it. The affected area underwent I&D by Dr. Hector on 11/05, and the area was subsequently packed. UCx grew citrobacter, and BCx contained contaminent. He was kept on CTX/Flagyl, and then adjusted to CTX. Once the induration and tenderness had improved in the L scrotum, ID felt it was appropriate to transition to PO Abx (levofloxacin) for an additional 7 days (14 days total). The patient's friend is a retired nurse and comfortably performing wound care and ensuring follow-up at the ID clinic. We have educated the patient to straight care w/ a sterile technique, approx 3- 4x/day, and start flomax, as this may improve BPH symptoms. It is unclear how much of this advice the patient will adhere to, as he likely has a schizotypal personality disorder w/ a history of severely paranoid actions, ongoing unusual beliefs in conspiracies, and seems very fixed in his routine, which has ensured him a relatively safe network of support, but has potentially resulted in under- appreciation of his mental health complexities. Discharge medications: please see official discharge medication reconciliation sheet in chart; of note, adding flomax 0.4mg HS, levofloxacin 750 daily x 7 days Discharge instructions: please follow-up with Dr. Souza as scheduled. > 30 minutes of direct patient care, as well as discharge planning and preparation.
== END 2017-11-10 16:13 | disposition home or self-care (01) | DRG 728 ==
LOC: OBSVTOIN 16:51 → F3E 17:54
PROVIDERS: ADMIT Internal Medicine; ATTEND Internal Medicine
PROC: 0V973ZZ Drainage of Left Tunica Vaginalis, Percutaneous Approach (ICD-10-PCS; principal; 2017-11-06 08:00)
DX: N43.1 Infected hydrocele (principal); B96.89 Other specified bacterial agents as the cause of diseases classified elsewhere; N49.2 Inflammatory disorders of scrotum; N40.1 Benign prostatic hyperplasia with lower urinary tract symptoms; R33.8 Other retention of urine; F21 Schizotypal disorder
CPT/HCPCS: 96365; 97110-GP; 97161-GP; J0696; J1100; J1650; J1885; J2370; J2405; J2704; J3010; Q9967